=== PATIENT | female | born 1990 | race Two or more races ===

== ENCOUNTER 2023-01-20 09:30 | Inpatient (IN) | payer BC ==
[2023-01-21] MEDS ORDERED: ELECTROLYTE-148 SOLN 1,000 ML IV ONE (07:15)
[2023-01-21] MEDS ORDERED: ELECTROLYTE-148 SOLN 1,000 ML IV SCH ×2 (07:15→09:30)
[2023-01-21] MEDS ORDERED: CITRIC ACID/SODIUM CITRATE 30 ML UNIT-DOSE CUP PO ONE ×2 (07:15→09:31)
[2023-01-21 08:08] VITALS: BMI 35.2
[2023-01-21] MEDS ORDERED: morphine SULFATE/PF 1 MG/2 ML (2cc Syringe - QUVA) ONE (12:36)
[2023-01-21] MEDS ORDERED: FENTANYL CITRATE/PF 50 MCG/ML VIAL ONE (12:36)
[2023-01-21] MEDS ORDERED: ceFAZolin SODIUM 1 GM VIAL ONE (12:48)
[2023-01-21] MEDS ORDERED: DEXAMETHASONE SOD PHOSPHATE 4 MG/1 ML VIAL ONE (12:48)
[2023-01-21] MEDS ORDERED: ONDANSETRON 4 MG/2 ML VIAL ONE (12:48)
[2023-01-21] MEDS ORDERED: PHENYLEPHRINE HCL 10 MG/1 ML SINGLE DOSE VIAL ONE (12:48)
[2023-01-21] MEDS ORDERED: METOCLOPRAMIDE HCL INJECTION 10 MG/2 ML VIAL ONE (12:48)
[2023-01-21] MEDS ORDERED: SODIUM CHLORIDE 0.9% P/F 10 ML VIAL IJ ONE ×2 (12:48→13:26)
[2023-01-21 13:18] LABS: HIV INTERPRETATION NEGATIVE (NEGATIVE)
[2023-01-21] MEDS ORDERED: ePHEDrine SULFATE 50 MG/1 ML AMPULE ONE (13:26)
[2023-01-21] MEDS ORDERED: IBUPROFEN 800 MG/8 ML IJ IVPB PRN (14:10)
[2023-01-21] MEDS ORDERED: METHYLERGONOVINE MALEATE 0.2 MG/1 ML AMP IM PRN (14:10)
[2023-01-21] MEDS: OXYTOCIN 20 UNITS in 0.9% NS 20 UNIT/1,000 ML INFUS.BAG IV SCH ×2 (14:20→17:05)
[2023-01-21] MEDS: ACETAMINOPHEN 1000 MG/100 ML BAG IVPB PRN (17:00)
[2023-01-22] MEDS ORDERED: oxyCODONE HCL 5 MG TABLET PO PRN ×2 (02:10)
[2023-01-22] MEDS: SIMETHICONE 80 MG TAB.CHEW (FP) PO PRN ×3 (03:45→21:44)
[2023-01-22] MEDS: ACETAMINOPHEN 1000 MG/100 ML BAG IVPB PRN (06:10)
[2023-01-22 07:58] LABS: BASO % 0.6 % (0-2.0); EOS % 0.2 % (0-4.5); HEMATOCRIT 31.9 % (32.4-45.2); HEMOGLOBIN 10.8 GM/dL (10.7-15.3); LYMPH % 22.8 % (8-40); MCH 29.3 pg (25.7-33.7); MEAN CELL VOLUME 86.1 fl (80-96); MEAN PLT VOLUME 7.5 fl (7.5-11.1); MONO % 6.4 % (3.8-10.2); PLATELET COUNT 273 10^3/uL (134-434); RDW 13.9 % (11.6-15.6); WHITE BLOOD COUNT 10.1 K/mm3 (4.0-10.0)
[2023-01-22] MEDS: PRENATAL VITAMINS W/ FOLIC ACID TABLET (FP) PO SCH (09:21)
[2023-01-22] MEDS: FERROUS SO4 325 MG TABLET (FP) PO SCH ×2 (09:21→21:44)
[2023-01-22] MEDS ORDERED: FLU VACCINE (FLULAVAL) PF 60 MCG/0.5 ML SYRINGE 2023-2024 IM ONE (10:00)
[2023-01-22] MEDS ORDERED: DIPHTH,PERTUSS(ACELL),TET 0.5 ML DISP.SYRIN IM ONE (10:00)
[2023-01-22] MEDS ORDERED: BISACODYL 10 MG SUPP.RECT RC PRN (14:10)
[2023-01-22] MEDS: IBUPROFEN 600 MG TABLET (FP) PO PRN (14:19)
[2023-01-22] MEDS: ACETAMINOPHEN 325 MG TABLET (FP) PO PRN (21:44)
[2023-01-22] MEDS: SENNOSIDES/DOCUSATE COMBO (SENNA PLUS) TABLET (UD) PO PRN (21:44)
[2023-01-23] MEDS: ACETAMINOPHEN 325 MG TABLET (FP) PO PRN ×2 (03:42→08:40)
[2023-01-23] MEDS: PRENATAL VITAMINS W/ FOLIC ACID TABLET (FP) PO SCH (09:33)
[2023-01-23] MEDS: FERROUS SO4 325 MG TABLET (FP) PO SCH ×2 (09:33→21:29)
[2023-01-23] MEDS: IBUPROFEN 600 MG TABLET (FP) PO PRN ×2 (13:28→21:29)
[2023-01-23] MEDS: SIMETHICONE 80 MG TAB.CHEW (FP) PO PRN (21:29)
[2023-01-23] MEDS: SENNOSIDES/DOCUSATE COMBO (SENNA PLUS) TABLET (UD) PO PRN (21:29)
[2023-01-24] MEDS: IBUPROFEN 600 MG TABLET (FP) PO PRN (08:09)
[2023-01-24] MEDS: SIMETHICONE 80 MG TAB.CHEW (FP) PO PRN (08:09)
[2023-01-24] MEDS: PRENATAL VITAMINS W/ FOLIC ACID TABLET (FP) PO SCH (10:00)
[2023-01-24] MEDS: FERROUS SO4 325 MG TABLET (FP) PO SCH (10:00)
[2023-01-24 11:40] VITALS: BP 128/71; PULSE 83; RESP 18; TEMP 98.3
== END 2023-01-24 12:00 | disposition home or self-care (01) | DRG 788 ==
LOC: JLDR 01-21 07:01 → J3W 01-21 15:20
PROVIDERS: ADMIT Obstetrics & Gynecology; ATTEND Obstetrics & Gynecology
PROC: 10D00Z1 Extraction of Products of Conception, Low, Open Approach (ICD-10-PCS; principal; 2023-01-21)
PROC: 0DNW0ZZ Release Peritoneum, Open Approach (ICD-10-PCS; 2023-01-21)
DX: O34.219 Maternal care for unspecified type scar from previous cesarean delivery (principal); O14.04 Mild to moderate pre-eclampsia, complicating childbirth; O99.892 Other specified diseases and conditions complicating childbirth; N73.6 Female pelvic peritoneal adhesions (postinfective); Z3A.37 37 weeks gestation of pregnancy; Z37.0 Single live birth
CPT/HCPCS: 36415; 85025; 85461; 86850; 86900; 86901; 87389; 88307-TC; 90686; 90715; 94010; 96372; G0008; J2790